=== PATIENT | male | born 1980 | race Caucasian/White ===

== ENCOUNTER 2017-05-13 05:54 | Inpatient (IN) | payer BC ==
--- NOTE | ~2017-05-13 | OR ---
Unit #: [id number] #: [id number] Patient: HAIM DIANE [id number] [address] [address] [id number] MR#: [id number] NAME: HAIM DIANE ROOM: 448 Date of Procedure: 05/13/2017 Admission Date: 05/13/2017 Surgeon: Idania Nice M.D. : 1980 Attending Physician: Idania Nice M.D. Referring Physician: Idania Nice M.D. OPERATIVE REPORT PREOPERATIVE DIAGNOSES 1. Left cavovarus foot. 2. Left clawed hallux. 3. Left foot Jqbedsy-Eaptj-Ldast disease. 4. Left plantar lateral midfoot neuropathic ulceration. POSTOPERATIVE DIAGNOSES 1. Left cavovarus foot. 2. Left clawed hallux. 3. Left foot Obwnvvz-Hgfsy-Vujwu disease. 4. Left plantar lateral midfoot neuropathic ulceration. PROCEDURES PERFORMED 1. Left foot triple arthrodesis (95335). 2. Left Carrasco procedure with transfer of extensor hallucis longus tendon to first metatarsal neck and fusion of hallux interphalangeal joint (39598). 3. Left proximal tibial bone graft (44536). 4. Left percutaneous Achilles tendon lengthening (60305). 5. Transfer of left posterior tibial tendon through the interosseous membrane to dorsal midfoot (14554). 6. Left first metatarsal base elevating osteotomy (64958). ASSISTANTS Rubin Jimenez Vessel. ANESTHESIA Popliteal saphenous block and general. 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 He has had a 2-year history of neuropathic ulcerations on the plantar lateral bases of the fifth metatarsal, which had been unresponsive to bracing and wound care. He is therefore to undergo surgical reconstruction of his left foot. DESCRIPTION OF PROCEDURE The patient underwent popliteal saphenous block. He was taken to the operating room and placed in supine position and general anesthetic was induced. The left foot was then prepped and draped in the usual sterile fashion. The leg was exsanguinated and the thigh tourniquet inflated to Unit #: [id number] #: [id number] Patient: HAIM DIANE 300 mmHg. A lateral longitudinal incision was made over the sinus tarsi ending at the fourth metatarsal base. Subcutaneous tissue was carefully divided. The contents of the sinus tarsi were removed. The power osteotome was then used to remove the articular cartilage from all three facets of the subtalar joint with care taken to remove slightly more bone anteriorly and laterally. The underlying subchondral bone was then feathered with the power osteotome. The calcaneocuboid joint was then exposed with subperiosteal dissection. The joint was distracted with a laminar tech intern. The power osteotome, curved curettes, and rongeurs were utilized to remove the articular cartilage from both sides of the calcaneocuboid joint. The underlying subchondral bone was feathered with the power osteotome. A medial longitudinal incision was then made over the posterior tibial tendon sheath measuring 6 cm. Subcutaneous tissue was divided. The posterior tibial tendon sheath was opened. The posterior tibial tendon was then sharply released from the navicular and tagged with a 2-0 Vicryl suture. The joint was then opened medially, but there was difficulty maintaining access to the talonavicular joint; therefore, it was decided to remove the articular cartilage through the lateral wound. The lateral joint capsule of the talonavicular joint was then opened with the scalpel blade and the joint was distracted with a laminar tech intern. The power osteotome, curved curettes, and rongeurs were utilized to remove the articular cartilage from both sides of the talonavicular joint. The underlying subchondral bone was feathered with the power osteotome. A 6 cm anterolateral longitudinal incision was made over the proximal tibia. The subcutaneous tissue was divided. The extensor fascia was opened. The lateral proximal tibial cortex was exposed. A 1 x 2 cm cortical window was made with the power osteotome and a large amount of cancellous bone was harvested with the curved curette. It was then packed into the subtalar joint, talonavicular joint, and calcaneocuboid joint. All joints were then reduced and the subtalar joint was fixated with an OrthoHelix 7.0 mm diameter cannulated screw placed from the posterior inferior calcaneus into the talar neck. The talonavicular joint was fixated with an OrthoHelix 5.5 mm diameter cannulated screw placed from distal to proximal. The calcaneocuboid joint was fixated with an OrthoHelix 5.5 mm diameter cannulated screw placed from distal to proximal. Excellent fixation was achieved and the heel position improved greatly and the heel now rested in 2 degrees of valgus. There was then 20 degrees of fixed forefoot valgus with depression of the first ray and this necessitated an elevating osteotomy of the first metatarsal base. A dorsal longitudinal incision was made over the first metatarsal base. Subcutaneous tissue was divided. The bone was exposed subperiosteally. Baby Hohmann retractors were placed. The microsagittal saw was used to fashion a 4 mm dorsal closing wedge osteotomy of the first metatarsal base 2 cm distal to the first tarsometatarsal joint. The osteotomy was closed and then fixated with a tension band technique using OrthoHelix 4.0 mm diameter cannulated screw placed in the proximal fragment. A transverse drill hole was placed through the distal fragment and an 18-gauge wire was placed through this hole and wrapped in a cksxuj-kj-jaaqf fashion around the head of the screw and tightened with a bead wire insulator. The wire was Unit #: [id number] #: [id number] Patient: HAIM DIANE then cut and then bent to conform and lay close to the first metatarsal base. The screw was then tightened. The forefoot then rested in rectus position. The incision was then extended distally over the first metatarsal, first metatarsophalangeal joint and then extended transversely across the interphalangeal joint. The extensor hallucis longus tendon was sharply released from the base of the distal phalanx. A 4 mm diameter drill hole was then placed transversely in the first metatarsal neck. The suture retriever was then used to weave the extensor hallucis longus tendon through the hole in the first metatarsal. It was pulled tightly and then sutured to itself with multiple 2-0 Vicryl fszocz-gn-boxvk sutures. The microsagittal saw was then used to remove the articular cartilage from both sides of the interphalangeal joint of the hallux. A K-wire was then drilled through the middle of the distal phalanx out of the tip of the toe and then reversed across the interphalangeal joint to hold the toe in corrected position. The joint was fixated with a cannulated OrthoHelix 4.0 mm diameter cannulated screw placed from distal to proximal. Care was taken to countersink the screw. The posterior tibial tendon was then transferred to the dorsal mid foot. A medial longitudinal incision was made over the distal tibia 10 cm proximal to the ankle joint. The deep fascia was opened and the free end of the posterior tibial tendon was pulled into this wound. A 5 cm anterior longitudinal incision was then made over the tibia 10 cm proximal to the ankle joint. The subcutaneous tissue was divided. The extensor fascia was opened. The contents of the extensor compartment were then retracted laterally. A 3 cm slit was then made in the interosseous membrane. The suture retriever was then used to pass the free end of the posterior tibial tendon from posterior to anterior through the interosseous membrane. A dorsal longitudinal incision was then made over the lateral cuneiform. The lateral cuneiform was exposed with subperiosteal dissection. A large clamp was then used to pass the free end of the posterior tibial tendon from the anterior tibial incision subcutaneously to exit the dorsal midfoot incision overlying the lateral cuneiform. An OrthoHelix 4.5 mm diameter suture anchor was then screwed into place into the lateral cuneiform. The two attached #2 FiberWire sutures were then used to repair the free end of the posterior tibial tendon down to the lateral cuneiform. Excellent fixation was achieved. A #11 knife blade was used to perform a percutaneous Achilles tendon lengthening. The medial half of the Achilles tendon was severed 2.5 cm proximal to the Achilles insertion. A second lateral hemisection was made 2.5 cm proximal to the first hemisection. A third medial hemisection was made 2.5 cm proximal to the second hemisection. The ankle was then easily dorsiflexed to 10 degrees. It should be noted at the beginning of the case following prepping the foot, the neuropathic ulceration was covered with Ioban and this was left in place throughout the case. A lateral incision was then made over the fifth metatarsal base. Sharp dissection was utilized to expose the fifth metatarsal base. The microsagittal saw was then used to remove one third of the prominence of the base of the fifth metatarsal. The bone was then removed and this Unit #: [id number] #: [id number] Patient: DIANEHAIM nicely decompressed the prominence laterally. All wounds were copiously irrigated. The deep tissues were closed with 2-0 Vicryl enfijy-sh-qnufv sutures. Subcutaneous tissue was closed with 3-0 Vicryl. The extensor fascia of the bone graft donor site of the proximal tibia was closed with 2-0 Vicryl ylqudb-rv-bkser sutures. Subcutaneous tissue was closed with 3-0 Vicryl and the skin was closed with 3-0 nylon horizontal mattress sutures. Xeroform gauze, dressing, sponges, Webril, and a posterior fiberglass splint were applied. The patient was then transported to the recovery room in stable condition. ESTIMATED BLOOD LOSS 200 mL. COMPLICATIONS None. SPECIMENS None. TOURNIQUET TIME 2 hours 20 minutes. Dictated by.Toney Luna/jammie TD: 05/14/2017 13:21 JOB #: [id number] OPERATIVE REPORT Page 1 of 1 X Abel Nice MD X PROCEDURE OPERATIVE NOTE
--- NOTE | ~2017-05-13 | HP ---
Unit #: [id number] #: [id number] Patient: HAIM DIANE [id number] [address] [address] [id number] O MR#: [id number] NAME: HAIM DIANE ROOM: Age: Sex: M Admission Date: 05/13/2017 : 1980 Attending Physician: Idania Nice M.D. Referring Physician: Idania Nice M.D. Primary Care Physician: Generic Doctor Not In System HISTORY AND PHYSICAL CHIEF COMPLAINT Left foot pain and deformity. HISTORY OF PRESENT ILLNESS The patient is a 36-year-old male with Jgvjgxn-Lutbt-Dwdub disease, who has bilateral foot deformities with open wounds. The patient has had wounds on the lateral sides of both of his feet for the past four years. They had healed at one time but now have been open again for two years. He states that his right foot had been deformed for the majority of his life but his left foot was normal until about six years ago during which time he started to have worsening deformity. He wears custom inserts and wide shoes and has had local wound care. He denies a history of serious infection to either foot. The patient is therefore admitted for surgical correction with left foot triple arthrodesis, posterior tibial tendon transfer, Achilles lengthening, Carrasco procedure, fifth metatarsal base excision and ankle osteophyte excision. We will utilize proximal tibial bone graft. PAST MEDICAL HISTORY Past medical history is otherwise unremarkable. PAST SURGICAL HISTORY Previous foot surgery. HOME MEDICATIONS None. ALLERGIES None. SOCIAL HISTORY The patient is a previous gxcz-zspv-sneg smoker. He currently does not smoke. He is a social drinker. He denies illicit drug use. REVIEW OF SYSTEMS Unremarkable. FAMILY HISTORY Unremarkable. PHYSICAL EXAMINATION GENERAL: Height 5 foot, 11 and 1/2 inches matty. Weight 210 pounds. In general this is a pleasant, well-developed and well-nourished male in no Unit #: [id number] #: [id number] Patient: HAIM DIANE acute distress. HEENT: Pharynx is clear. NECK: The neck is supple, without masses. HEART: Exam reveals a regular sinus rhythm without murmurs or gallops. LUNGS: The lungs are clear. ABDOMEN: The abdomen is soft and nontender, without masses or organomegaly. EXTREMITIES: Evaluation of both feet demonstrates significant cavovarus foot deformities. Evaluation of the left foot demonstrates a significant cavus deformity with heel varus measuring 5 degrees. Left ankle dorsiflexion is -5 degrees, plantar flexion is normal, subtalar motion is absent. First MTP joint dorsiflexion is 25 degrees and plantar flexion is 10 degrees. The patient has clawing of the left hallux with hyperextension of the first MTP joint and flexion of the IP joint. The lesser toes show relatively little clawing. His lesser toe clawing reduces with weight bearing. Motor exam shows 5+/5 left ankle dorsiflexion, plantar flexion, eversion and inversion. There is a 2 cm open wound at the base of the fifth metatarsal. DIAGNOSTIC STUDIES IMAGING: Standing x-rays of the left foot show significant cavus deformity with the apex of the deformity being at the talonavicular joint. There is arthritic change of the subtalar joint with extensive posterior osteophyte formation and flattening of the talar dome. There is evidence of a previous heel left fifth metatarsal base fracture. 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 The left ankle appears to be stable without evidence of talar tilt. IMPRESSION 1. Kheswdn-Vcwep-Yyrdj disease. 2. Left foot cavovarus deformity secondary number one. 3. Left claw toe of the hallux. 4. Left ankle equinus. 5. Left lateral plantar midfoot neuropathic ulcer. PLAN The patient has failed conservative care with orthotic management and wound care. I have therefore recommended surgical correction. This would entail a left foot triple arthrodesis (Lambrinudi style), transfer of the posterior tibial tendon to the dorsal midfoot, Carrasco procedure, percutaneous Achilles tendon lengthening, proximal tibial bone graft, and possible resection of the fifth metatarsal base. This procedure was described in detail along with risks of bleeding, infection, nerve damage, need for further surgery in the future, deep venous thrombosis, pulmonary embolism, anesthetic complications, nonunion, malunion, prolonged recovery time, deep venous thrombosis and pulmonary embolism. He understands the above risks and agrees to proceed. We will then plan right foot surgery which will entail dorsal lateral closing wedge osteotomy of the right dorsal midfoot, Achilles lengthening, Carrasco procedure and possible second through fifth claw toe procedures. Dictated by Idania Nice M.D. Unit #: [id number] #: [id number] Patient: HAIM DIANE RT/cf TD: 05/12/2017 17:45 JOB #: [id number] HISTORY AND PHYSICAL Page 1 of 1 X Abel Nice MD X HISTORY AND PHYSICAL
--- NOTE | ~2017-05-13 | DS ---
Unit #: [id number] #: [id number] Patient: HAIM DIANE [id number] [address] [place], [place] [address] [id number] MR#: [id number] NAME: HAIM DIANE ROOM: 448 Age: 36 Sex: M Admission Date: 05/13/2017 : 1980 Discharge Date: 05/15/2017 Attending Physician: Idania Nice M.D. Referring Physician: Idania Nice M.D. Primary Care Physician: Generic Doctor Not In System DISCHARGE SUMMARY CHIEF COMPLAINT Left foot pain and deformity with persistent lateral midfoot ulceration HISTORY OF PRESENT ILLNESS The patient is a 36-year-old male with history of Charcot-Sharon tooth disease and bilateral severe caval varus foot deformities. The patient has long-standing bilateral fifth metatarsal based ulcerations, which have been unresponsive to bracing. His left foot ulcer has been present for two years. The patient wears custom inserts and wide shoes and has been attending wound care for his foot. Despite the above-mentioned treatment, he has had a persistent ulceration and he is therefore admitted for foot reconstruction. DESCRIPTION OF HOSPITAL COURSE The patient was taken to the operating room on the date of admission where he underwent left foot triple arthrodesis, Carrasco procedure, posterior tibial pin and transfer to midfoot, proximal tibial bone graft and fifth metatarsal base excision. He also had elevating first ray osteotomy. There were no operative complications. He had a stable postoperative course. Pain was controlled with IV morphine LOAN ADVISER and oral narcotics. He was seen by physical therapy on a daily basis and instructed how to remain nonweightbearing on his affected side. Dressing was changed on the second postoperative day. He was discharged on the second postoperative day in stable condition. He remained afebrile with stable vital signs. FINAL DIAGNOSES 1. Charcot-Sharon tooth disease 2. Severe left cavovarus foot deformity 3. Neuropathic ulcer left plantar medial midfoot DISPOSITON AND RECOMMENDATIONS 1. The patient is discharged home. He will keep the dressing clean, dry and intact. He will continue ice and elevation. He will remain strictly nonweightbearing on the left foot for three months. 2. Discharge medications remain the same as is home medications with the addition of Percocet 5/325 one to two p.o. every 4-6 hours p.r.n. pain and Xarelto 10 mg p.o. daily for a total of two weeks. 3. Follow up in my office in two weeks for dressing change, suture removal and application of a cast. He will remain nonweightbearing for a total of three months. Unit #: [id number] #: [id number] Patient: HAIM DIANE Dictated by.Lorna Nice M.D. RTH/to TD: 05/15/2017 19:14 JOB #: [id number] DISCHARGE SUMMARY Page 1 of 1 X Abel Nice MD X DISCHARGE SUMMARY
[~2017-05-13 05:54] MED LIST: ADVIL200 M3
[2017-05-14 02:43] LABS: HEMATOCRIT 33.6 % (38.0-50.0); HEMOGLOBIN 10.8 gm/dL (13.0-16.0)
[2017-05-15 03:57] LABS: HEMATOCRIT 33.3 % (38.0-50.0); HEMOGLOBIN 10.4 gm/dL (13.0-16.0)
[2017-05-15] MEDS ORDERED: XARELTO10 MG PO (10:41)
[2017-05-15] MEDS ORDERED: PERCOCET 5/321 UDTAB PO (10:42)
== END 2017-05-15 11:53 | disposition home or self-care (01) | DRG 493 ==
LOC: CSUR 05:54 → CPACUOF 08:13 → CSUR 08:13 → CPACUOF 11:39 → C4B 11:39 → CPACUOF 13:05 → C4B 13:05
PROVIDERS: Orthopaedic Surgery
PROC: 0SGJ07Z Fusion of Left Tarsal Joint with Autologous Tissue Substitute, Open Approach (ICD-10-PCS; 2017-05-13)
PROC: 0SGJ07Z Fusion of Left Tarsal Joint with Autologous Tissue Substitute, Open Approach (ICD-10-PCS; 2017-05-13)
PROC: 0LXW0ZZ Transfer Left Foot Tendon, Open Approach (ICD-10-PCS; 2017-05-13)
PROC: 0SGQ04Z Fusion of Left Toe Phalangeal Joint with Internal Fixation Device, Open Approach (ICD-10-PCS; 2017-05-13)
PROC: 0L8P3ZZ Division of Left Lower Leg Tendon, Percutaneous Approach (ICD-10-PCS; 2017-05-13)
PROC: 0QBP0ZZ Excision of Left Metatarsal, Open Approach (ICD-10-PCS; 2017-05-13)
PROC: 0SGJ04Z Fusion of Left Tarsal Joint with Internal Fixation Device, Open Approach (ICD-10-PCS; principal; 2017-05-13 07:30)
PROC: 0QBH0ZZ Excision of Left Tibia, Open Approach (ICD-10-PCS; 2017-05-13 07:30)
PROC: 0SGJ04Z Fusion of Left Tarsal Joint with Internal Fixation Device, Open Approach (ICD-10-PCS; 2017-05-13 07:30)
PROC: 0SGJ04Z Fusion of Left Tarsal Joint with Internal Fixation Device, Open Approach (ICD-10-PCS; 2017-05-13 07:30)
PROC: 0SGJ07Z Fusion of Left Tarsal Joint with Autologous Tissue Substitute, Open Approach (ICD-10-PCS; 2017-05-13 07:30)
DX: Q66.1 Congenital talipes calcaneovarus (principal); L97.429 Non-pressure chronic ulcer of left heel and midfoot with unspecified severity; G60.0 Hereditary motor and sensory neuropathy; Z87.891 Personal history of nicotine dependence; Q66.89 Other specified congenital deformities of feet
CPT/HCPCS: 85014; 85018; 94010; 94760; 97161; 97530; C1713; G8978-GP; G8979-GP; G8980-GP; J0690; J1885; J2250; J2270; J2405; J2795; J3010